=== PATIENT | female | born 1975 | race Caucasian/White ===

== ENCOUNTER 2018-02-14 07:59 | Inpatient (IN) | payer OTHER ==
[~2018-02-14] VITALS: Ht 167.6 cm; Wt 59.4 kg
[2018-02-14 08:00] VITALS: BP_SYST 139
--- NOTE | 2018-02-14 08:00 | NUR ---
Patient placed in bed 4.
--- NOTE | 2018-02-14 08:01 | NUR ---
Patient here for "Marydudley pranay stuck in my throat" has been experiencing increased phelgm since last night, along with moderate abdominal pain.
--- NOTE | 2018-02-14 08:10 | NUR ---
MD Zuniga at bedside.
[2018-02-14] MEDS ORDERED: LORazepam 2 MG/ML VIAL IVP ONE (08:15)
[2018-02-14] MEDS ORDERED: MAG-AL HYDROX/SIMETH 30 ML UDC PO ONE (08:15)
--- NOTE | 2018-02-14 08:20 | NUR ---
Pt report received. Pt still c/o a piece of meat stuck in her throat. Pt has emesis basin spitting up saliva. Airway patent.
[2018-02-14] MEDS ORDERED: LORazepam 2 MG/ML VIAL (FOR ER USE) IVP ONE ×2 (08:30→10:15)
[2018-02-14] MEDS ORDERED: ONDANSETRON HCL 4 MG/2 ML VIAL ONE (09:10)
[2018-02-14] MEDS ORDERED: ONDANSETRON HCL 4 MG/2 ML VIAL IVP ONE (09:15)
--- NOTE | 2018-02-14 09:23 | NUR ---
Pt resting quietly, NAD. at bedside.
--- NOTE | 2018-02-14 09:50 | NUR ---
Pt states no relief. Dr. Zuniga notified. Instructed to give pt water to see if obstruction will pass. Will reassess.
--- NOTE | 2018-02-14 10:30 | NUR ---
Call placed to Dr. Mccarthy () for evaluation.
--- NOTE | 2018-02-14 10:48 | NUR ---
Damon from GI at bedside to speak with pt.
--- NOTE | 2018-02-14 11:00 | NUR ---
[facility] Del Carmen frankel in [facility] - 02/14/18 at 1116 by SDEDAJ Pt returns from x-ray.
--- NOTE | 2018-02-14 11:00 | NUR ---
Dr. Mccarthy spoke MD to MD via phone with Dr. Zuniga.
--- NOTE | 2018-02-14 11:04 | NUR ---
Patient taken to Radiology with XR tech as escort.
--- NOTE | 2018-02-14 11:10 | NUR ---
Pt returns from x-ray.
--- NOTE | 2018-02-14 11:15 | NUR ---
Pt states no relief in symptoms.
[2018-02-14 11:22] LABS: BASOPHILS # (AUTO) 0.1 K/uL (0.0-0.2); BASOPHILS % (AUTO) 0.5 % (0.0-2.0); EOSINOPHILS % (AUTO) 0.1 % (0.0-4.0); HEMATOCRIT 46.5 % (36-48); HEMOGLOBIN 15.6 g/dL (12.0-16.0); LYMPHOCYTES # (AUTO) 1.8 K/uL (1.0-5.5); LYMPHOCYTES % (AUTO) 11.5 % (20.5-51.5); MEAN CORPUSCULAR HEMOGLOBIN 33 pg (27-31); MEAN CORPUSCULAR HGB CONC 34 % (32-36); MEAN CORPUSCULAR VOLUME 99 fL (79.0-98.0); MONOCYTES # (AUTO) 0.5 K/uL (0.0-1.0); MONOCYTES % (AUTO) 2.9 % (1.7-9.3); NEUTROPHILS # (AUTO) 13.4 K/uL (1.8-7.7); PLATELET COUNT (AUTO) 288 K/uL (130-430); RED CELL DISTRIBUTION WIDTH 10.9 % (9.0-15.0); WHITE BLOOD COUNT (AUTO) 15.8 K/uL (4.8-10.8)
--- NOTE | 2018-02-14 11:25 | NUR ---
Patient will be admitted to care of Dr. Lopez. Admitted to Med/Surg unit. Will go to room 116B. Belongings list completed. Summary report printed. Report will be given at bedside.
[2018-02-14 11:37] LABS: CALCIUM 10.3 mg/dL (8.4-11.0); CREATININE 0.75 mg/dL (0.55-1.30); POTASSIUM 4.2 mmol/L (3.5-5.1)
[2018-02-14 11:42] LABS: ALBUMIN 4.3 g/dL (3.4-4.8); TOTAL BILIRUBIN 1.1 mg/dL (0.0-1.0)
[2018-02-14 11:50] VITALS: BP_SYST 144
--- NOTE | 2018-02-14 11:50 | NUR ---
Opening Note received report from admitting RN, pt resting in bed, A&Ox4, respirations even and unlabored on room air, HOB elevated, pt denies any pain or shortness of breath, pt denies any nausea at this time, spouse at bedside, IV site clean, dry, and intact, pt NPO awaiting EGD, pt educated on use of call light and asked to call for assistance, pt verbalized understanding, call light in reach, bed in low position, bed alarm on, fall and aspiration precautions in place.
[2018-02-14 13:12] VITALS: BP_SYST 120
--- NOTE | 2018-02-14 13:20 | NUR ---
RN Rounds pt resting in bed, respirations even and unlabored, no acute distress noted, pt denies any pain or shortness of breath, fall and aspiration precautions in place.
[2018-02-14] MEDS ORDERED: MORPHINE 2 MG/ML INJ. SYRINGE IVP PRN (13:45)
[2018-02-14] MEDS ORDERED: MORPHINE 4 MG/ML INJ. SYRINGE IVP PRN (13:45)
[2018-02-14] MEDS ORDERED: ONDANSETRON HCL 4 MG/2 ML VIAL IVP PRN (13:45)
--- NOTE | 2018-02-14 13:55 | NUR ---
to GI lab pt stable, pt taken to GI lab via wheelchair.
--- NOTE | 2018-02-14 13:58 | NUR ---
GI LAB: PATIENT IS PICKED UP TO GI LAB VIA A WHEELCHAIR WITH STABLE CONDITION.
[2018-02-14] MEDS: fentaNYL CITRATE/PF 100 MCG/2 ML AMP ONE ×4 (14:07→15:08)
[2018-02-14] MEDS: MIDAZOLAM HCL 5 MG/5 ML VIAL ONE ×5 (14:07→15:06)
[2018-02-14 14:39] LABS: HCG,QUAL RESULT NEGATIVE (NEGATIVE)
[2018-02-14 14:50] LABS: BILIRUBIN,URINE 1+ (NEGATIVE); BLOOD, URINE NEGATIVE (NEGATIVE); CLARITY/URINE CLEAR (CLEAR); COLOR,URINE YELLOW (YELLOW); GLUCOSE,URINE NEGATIVE (NEGATIVE); KETONES,URINE 2+ (NEGATIVE); LEUKOCYTE ESTERASE ,URINE TRACE (NEGATIVE); NITRITE, URINE NEGATIVE (NEGATIVE); PROTEIN URINE NEGATIVE (NEGATIVE); UROBILINOGEN,URINE 0.2 (0.2-1.0)
[2018-02-14 15:02] LABS: BACTERIA,URINE FEW /HPF (None Seen); RBC,URINE 0-3 /HPF (0-3)
[2018-02-14 15:03] LABS: MUCUS,URINE 2+ /LPF (None Seen); WBC,URINE 0-3 /HPF (0-3)
[2018-02-14] MEDS: DIPHENHYDRAMINE INJ 50 MG/ML VIAL ONE ×2 (15:10→16:01)
--- NOTE | 2018-02-14 15:48 | NUR ---
back from GI pt back from GI lab, no acute distress noted, BP 119/78, HR 78, O2Sat 99%, temp 97.8, respirations 17, pt denies any pain or shortness of breath, family at bedside, call light in reach, bed in low position, bed alarm on, fall and aspiration precautions in place.
[2018-02-14] MEDS ORDERED: PANTOPRAZOLE SODIUM 40 MG/VIAL (PROTONIX) IVP ONE (16:00)
[2018-02-14] MEDS: D5NS 1,000 ML IV SCH (16:06)
--- NOTE | 2018-02-14 16:14 | NUR ---
Medication pt educated on medication use and side effects, pt verbalized understanding, pt tolerated medication administration well, no acute distress noted, fall and aspiration precautions in place.
[2018-02-14 16:45] VITALS: BP_SYST 125
--- NOTE | 2018-02-14 16:54 | NUR ---
Spoke with MD spoke with Dr. Madsen, informed MD that per Dr. Rivera pt is okay for discharge home.
--- NOTE | 2018-02-14 18:20 | NUR ---
RN Rounds pt sleeping in bed, respirations even and unlabored, no acute distress noted, fall and aspiration precautions in place.
--- NOTE | 2018-02-14 19:05 | NUR ---
Closing Note pt resting in bed, A&Ox4, respirations even and unlabored on room air, pt states that pain is controlled at this time, pt denies any shortness of breath, no acute distress noted, IV site clean, dry, intact, and infusing well, pt educated on use of call light and asked to call for assistance, pt verbalized understanding, call light in reach, bed in low position, bed alarm on, fall and aspiration precautions in place, care endorsed to Hermila OLSON.
--- NOTE | 2018-02-14 19:20 | NUR ---
OPENING NOTE RECEIVED PT ENDORSEMENT REPORT FROM DAY SHIFT NURSE PEREZ AT BEDSIDE. PT IS AOX4, PT RESTING COMFORTABLY IN BED WITH EYE OPEN. PTS' CHEST RISE EVEN AND UNLABORED. NO COMPLAINTS OF PAIN AT THIS TIME. NO DISTRESS NOTED. NO RESPIRATORY DISTRESS NOTED. PT IS ON RA. PT'S IV ON LEFT AC 22G. PT ORIENTED TO HOSPITAL ROOM, PT INSTRUCTED HOW TO USE CALL LIGHT AND ROOM PHONE, PT VERBALIZED UNDERSTANDING. PT AWARE TO CALL FOR ASSISTANCE WHEN AMBULATING. PT INSTRUCTED ON PT SAFETY, PT VERBALIZED UNDERSTANDING. SAFETY MEASURES IN PLACE, CALL LIGHT AND ROOM PHONE WITHIN REACH, BED BRAKES LOCKED, BED ALARM ON, BED RAILS UP X2, BED IN LOWEST POSITION, BEDSIDE TABLE WITHIN REACH. NO NEEDS AT THIS TIME, WILL CONTINUE TO MONITOR PT AND CONTINUE POC.
[2018-02-14 20:38] VITALS: BP_SYST 125
--- NOTE | 2018-02-14 20:38 | NUR ---
RN ROUNDS PT RESTING COMFORTABLY IN BED WITH EYES OPEN. PTS' CHEST RISE EVEN AND UNLABORED. NO COMPLAINTS OF PAIN AT THIS TIME. NO DISTRESS NOTED. NO RESPIRATORY DISTRESS NOTED. IVF INFUSING WELL. IV DRY, CLEAN AND INTACT. VITAL SIGNS WNL. LUNGS CLEAR ON AUSCULTATION X 5. BOWEL SOUNDS ACTIVE X 4 QUADS. LBM 9/28 AM. PT DENIES CONSTIPATION, DIARRHEA. SKIN, DRY AND INTACT. NO NEEDS AT THIS TIME. SAFETY MEASURES IN PLACE, CALL LIGHT AND ROOM PHONE WITHIN REACH, BED BRAKES LOCKED, BED ALARM ON, BED RAILS UP X2, BED IN LOWEST POSITION, BEDSIDE TABLE WITHIN REACH. WILL CONTINUE TO MONITOR PT AND CONTINUE POC.
--- NOTE | 2018-02-14 22:25 | NUR ---
RN ROUNDS PT RESTING IN BED WITH EYES CLOSED. CHEST RISE EVEN AND UNLABORED. NO DISTRESS NOTED. NO NEEDS AT THIS TIME. SAFETY MEASURES IN PLACE, CALL LIGHT AND ROOM PHONE WITHIN REACH, BED BRAKES LOCKED, BED ALARM ON, BED RAILS UP X2, BED IN LOWEST POSITION, BEDSIDE TABLE WITHIN REACH. WILL CONTINUE TO MONITOR PT AND CONTINUE POC.
[2018-02-14 23:39] VITALS: BP_SYST 117
--- NOTE | 2018-02-15 00:15 | NUR ---
RN ROUNDS PT RESTING COMFORTABLY IN BED WITH EYES CLOSED. PTS' CHEST RISE EVEN AND UNLABORED. NO DISTRESS NOTED. NO RESPIRATORY DISTRESS NOTED. NO S/S OF PAIN NOTED. NO NEEDS AT THIS TIME. SAFETY MEASURES IN PLACE. WILL CONTINUE TO MONITOR PT AND CONTINUE POC.
--- NOTE | 2018-02-15 01:16 | NUR ---
RN ROUNDS PT RESTING COMFORTABLY IN BED WITH EYES CLOSED. PT'S CHEST RISE EVEN AND UNLABORED. NO DISTRESS NOTED. NO RESPIRATORY DISTRESS NOTED. SAFETY MEASURES IN PLACE. WILL CONTINUE TO MONITOR PT AND CONTINUE POC.
--- NOTE | 2018-02-15 03:18 | NUR ---
RN ROUNDS PT RESTING COMFORTABLY IN BED WITH EYES CLOSED. PTS' CHEST RISE EVEN AND UNLABORED.IVF INFUSING WELL. SAFETY MEASURES IN PLACE, CALL LIGHT AND ROOM PHONE WITHIN REACH, BED BRAKES LOCKED, BED ALARM ON, BED RAILS UP X2, BED IN LOWEST POSITION, BEDSIDE TABLE WITHIN REACH. NO NEEDS AT THIS TIME, WILL CONTINUE TO MONITOR PT AND CONTINUE POC.
[2018-02-15] MEDS: D5NS 1,000 ML IV SCH (04:21)
--- NOTE | 2018-02-15 05:19 | NUR ---
RN ROUNDS PT RESTING IN BED WITH EYES CLOSED. CHEST RISE EVEN AND UNLABORED. NO SOB NOTED, NO DISTRESS NOTED. IVF INFUSING WELL. SAFETY MEASURES IN PLACE. WILL CONTINUE TO MONITOR PT.
--- NOTE | 2018-02-15 06:36 | NUR ---
RN ROUNDS PT RESTING COMFORTABLY IN BED WITH EYES CLOSED. PT'S CHEST RISE EVEN AND UNLABORED. NO DISTRESS NOTED. NO RESPIRATORY DISTRESS NOTED. NO S/S OF PAIN NOTED. NO NEEDS AT THIS TIME. SAFETY MEASURES IN PLACE, CALL LIGHT AND ROOM PHONE WITHIN REACH, BED BRAKES LOCKED, BED ALARM ON, BED RAILS UP X2, BED IN LOWEST POSITION, BEDSIDE TABLE WITHIN REACH. WILL CONTINUE TO MONITOR PT AND CONTINUE POC.
--- NOTE | 2018-02-15 07:15 | NUR ---
initial note RECEIVED REPORT AND PATIENT FROM LEAD ACCOUNTANT NURSE. PATIENT IN BED AWAKE, ALERT, VERBALLY RESPONSIVE. DENIES ANY PAIN AT THIS TIME. VS STABLE. PATIENT AMBULATES INDEPENDENTLY. CONTINENT BOWEL AND BLADDER. REMIND PATIENT TO ASK FOR ASSISTANCE, CALL LIGHT WITHIN REACH. WILL CONTINUE TO MONITOR.
--- NOTE | 2018-02-15 07:25 | NUR ---
CLOSING NOTE ENDORSED PT REPORT TO DAY SHIFT NURSE FRANNY AT BEDSIDE. PT IS AOX4, PT RESTING COMFORTABLY IN BED WITH EYES OPEN. PTS' CHEST RISE EVEN AND UNLABORED. NO COMPLAINTS OF PAIN AT THIS TIME. NO DISTRESS NOTED. NO RESPIRATORY DISTRESS NOTED. PT IS ON RA. IV INFUSING WELL. ALL NEEDS MET THROUGHOUT SHIFT. ALL SCHEDULED MEDICATIONS ADMINISTERED ORDERED, PT TOLERATED WELL. SAFETY MEASURES IN PLACE, CALL LIGHT AND ROOM PHONE WITHIN REACH, BED BRAKES LOCKED, BED ALARM ON, BED RAILS UP X2, BED IN LOWEST POSITION, BEDSIDE TABLE WITHIN REACH. NO NEEDS AT THIS TIME.
--- NOTE | 2018-02-15 07:28 | NUR ---
INITIAL NOTE RECEIVED REPORT AND PATIENT FROM ACETYLENE OPERATOR NURSE. PATIENT IN BED AWAKE, ALERT, VERBALLY RESPONSIVE. CONTINUE ON NPO FOR PROCEDURE. DENIES ANY PAIN AT THIS TIME. VS STABLE. PATIENT AMBULATES INDEPENDENTLY WITH WALKER. CONTINENT BOWEL AND BLADDER. REMIND PATIENT TO ASK FOR ASSISTANCE, CALL LIGHT WITHIN REACH. WILL CONTINUE TO MONITOR.
[2018-02-15 07:35] VITALS: BP_SYST 133
--- NOTE | 2018-02-15 08:10 | NUR ---
DR. GILMORE MAKING ROUNDS FOR DR. NANCY GILMORE MAKING ROUNDS WITH NEW ORDERS, PATIENT IS AWARE
[2018-02-15 08:15] VITALS: BP_SYST 133
--- NOTE | 2018-02-15 08:20 | NUR ---
PICKED UP FOR SURGERY PATIENT WAS PICKED UP FOR SURGERY WITH RN AND TECH. TRANSPORTED VIA BED. PATIENT REMAINED AWAKE, ALERT, VERBALLY RESPONSIVE, VS STABLE. Addendum: 02/15/18 at 1549 by Farrukh Rose RN [id number]- PLEASE DISREGARD THE NOTE ABOVE, WRONG PATIENT
[2018-02-15] MEDS ORDERED: PANTOPRAZOLE SODIUM 40 MG/VIAL (PROTONIX) IVP SCH (09:00)
--- NOTE | 2018-02-15 09:10 | NUR ---
IV INFILTRATED IV ON THE LEFT AC GOT INFILTRATED, PATIENT REFUSED FOR A NEW IV LINE TO BE REINSERTED, STATING THAT SHE WILL BE LEAVING TODAY ANYWAY. PAGED DR. GILMORE WAITING FOR CALL BACK.
--- NOTE | 2018-02-15 09:30 | NUR ---
PAGED DR. CALVERT COVERING FOR DR. ZELAYA PAGED AND TALKED TO DR. CALVERT REGARDING THE PATIENT WANTS TO LEAVE RIGHT NOW AND ASKING FOR DISCHARGE ORDER, MD RESPONDED THAT HE NEEDS TO SEE THE PATIENT FIRST BEFORE DISCHARGING HER. NOTIFIED PATIENT.
--- NOTE | 2018-02-15 11:00 | NUR ---
DR. GILMORE CALLED BACK DR. GILMORE CALLED BACK AND SWITCH THE PROTONIX IV ORDER TO PO. MADE PATIENT AWARE AND MEDICATION WAS ADMINISTERED.
[2018-02-15] MEDS ORDERED: PANTOPRAZOLE SODIUM 40 MG TAB PO ONE (11:15)
[2018-02-15 12:00] VITALS: BP_SYST 130
[2018-02-15 12:38] VITALS: BP_SYST 125
--- NOTE | 2018-02-15 12:45 | NUR ---
DR. CALVERT AT BEDSIDE DR. CALVERT MAKING ROUNDS, TALKED AND ASSESSED THE PATIENT WITH NEW ORDER TO DISCHARGE PATIENT. PATIENT IS AWARE.
[2018-02-15] MEDS ORDERED: PRO40 PO (12:51)
--- NOTE | 2018-02-15 13:00 | NUR ---
DISCHARGE PATIENT IS DISCHARGE, PICKED UP BY , MICHAEL. PATIENT'S BELONGINGS WERE TAKEN HOME. DISCHARGE INSTRUCTIONS WAS GIVEN BY DR. CALVERT, PATIENT VERBALIZE UNDERSTANDING. PATIENT DENIES ANY PAIN, VS STABLE, REMAINED AWAKE, ALERT, VERBALLY RESPONSIVE. PATIENT REFUSED TO BE WHEELED OUTSIDE VIA WHEEL CHAIR AND REQUESTED TO WALK.
[2018-02-16] MEDS ORDERED: PANTOPRAZOLE SODIUM 40 MG TAB PO SCH (09:00)
== END 2018-02-15 13:01 | disposition home or self-care (01) | DRG 395 ==
LOC: SED 07:59 → SMU 11:07
PROVIDERS: ADMIT Internal Medicine Hospice and Palliative Medicine; ATTEND Internal Medicine Hospice and Palliative Medicine
PROC: 0DC18ZZ Extirpation of Matter from Upper Esophagus, Via Natural or Artificial Opening Endoscopic (ICD-10-PCS; principal; 2018-02-14 14:30)
DX: T18.128A Food in esophagus causing other injury, initial encounter (principal); F41.9 Anxiety disorder, unspecified; R07.9 Chest pain, unspecified; K21.0 Gastro-esophageal reflux disease with esophagitis; K22.2 Esophageal obstruction; X58.XXXA Exposure to other specified factors, initial encounter; Y93.89 Activity, other specified; Y92.89 Other specified places as the place of occurrence of the external cause; Y99.8 Other external cause status
CPT/HCPCS: 36415; 43247; 71046-TC; 80053; 81000-TC; 84703; 85025; 96374; 96375; 96376; 99285; C9113; J1200; J2060; J2250; J2405; J3010; J7042